=== PATIENT | male | born 1975 | race Caucasian/White ===

== ENCOUNTER 2019-11-22 19:06 | Observation (INO) | payer BC, OTHER ==
[~2019-11-22] VITALS: Ht 177.8 cm; Wt 83.7 kg
[2019-11-22] MEDS ORDERED: PANTOPRAZOLE 40 MG (PROTONIX) VIAL IV ONE (19:30)
[2019-11-22] MEDS ORDERED: ASPIRIN 81 MG CHEW (CHILDREN'S ASA) PO ONE (19:30)
--- NOTE | 2019-11-22 19:30 | ED Chest Pain ---
General Chief Complaint: Chest Pain Stated Complaint: CP Source: patient Exam Limitations: no limitations History of Present Illness Date Seen by Provider: Nov 22, 2019 Time Seen by Provider: 19:17 Initial Comments Patient resists ER by private conveyance from home with chief complaint chest pain on exertion throughout the day today. He is presently pain-free while at rest. He was having a few episodes of substernal right of the midline chest pain on the car ride over here but none since arriving in the ER. He says this started about 9:30 this morning as he was doing some cleaning around the garage. For the past week she's been having some numbness and tingling in his left arm alternating with his right arm and he did not think much of it. When he started having chest pain and noticed it would go away with rest and worsened with exertion he became concerned and decided to come to the ER. No personal history of coronary disease but his brother had a heart attack in his 40s and his mother and father both had heart attacks in their early 60s. He denies a history of diabetes or hypertension but does have borderline cholesterol and takes medication for this. He has never smoked in his life. He denies cough shortness of breath fever or chills. He has no orthopnea. He has a history of GERD but did not take anything an antacid today. He did take 325 mg of aspirin this morning when the pain started up. He follows with a nurse practitioner at [facility] preventative medicine but does not have a local primary nor does she follow with a taping supervisor. No history of himself or family with blood clots. No swollen legs, long distance travel or periods of immobility. No recent surgery. Allergies and Home Medications Allergies Coded Allergies: Penicillins (Verified Allergy, Unknown, 11/22/19) Home Medications No Active Prescriptions or Reported Meds Patient Home Medication List Home Medication List Reviewed: Yes Review of Systems Review of Systems Constitutional: No chills, No fever, No malaise EENTM: No Blurred Vision, No Double Vision Respiratory: Denies Cough, Denies Shortness of Air Cardiovascular: See HPI, Chest Pain; Denies Edema, Denies Irregular Heart Rate, Denies Lightheadedness Gastrointestinal: Denies Constipated, Denies Diarrhea, Denies Nausea Genitourinary: Denies Burning, Denies Discharge Musculoskeletal: No back pain, No joint pain Skin: No pruritus, No rash Psychiatric/Neurological: Denies Headache, Denies Numbness All Other Systems Reviewed Negative Unless Noted: Yes Past Iikhjuy-Eojdwa-Mwkmrd Hx Patient Social History Alcohol Use: Regular Use (3 days a week) Alcohol Beverage of Choice: Beer (3 days a week) Recreational Drug Use: No Smoking Status: Never a Smoker Recent Foreign Travel: No Contact w/Someone Who Travel: No Physical Exam Vital Signs Vital Signs - First Documented Capillary Refill : Less Than 3 Seconds Height, Weight, BMI Height: '" Weight: lbs. oz. kg; BMI Method: General Appearance: No Apparent Distress, WD/WN HEENT: PERRL/EOMI, Pharynx Normal, Moist Mucous Membranes Neck: Full Range of Motion, Normal Inspection Respiratory: Chest Non Tender, Lungs Clear, Normal Breath Sounds, No Accessory Muscle Use, No Respiratory Distress Cardiovascular: Regular Rate, Rhythm, No Edema, Normal Peripheral Pulses Gastrointestinal: Normal Bowel Sounds, No Organomegaly, Non Tender, Soft Neurologic/Psychiatric: Alert, Oriented x3, No Motor/Sensory Deficits Skin: Normal Color, Warm/Dry Progress/Results/Core Measures Results/Orders Lab Results Laboratory Tests Test 11/22/19 19:20 Range/Units White Blood Count 6.7 4.3-11.0 10^3/uL Red Blood Count 4.84 4.35-5.85 10^6/uL Hemoglobin 14.7 13.3-17.7 G/DL Hematocrit 43 40-54 % Mean Corpuscular Volume 90 80-99 FL Mean Corpuscular Hemoglobin 30 25-34 PG Mean Corpuscular Hemoglobin Concent 34 32-36 G/DL Red Cell Distribution Width 13.2 10.0-14.5 % Platelet Count 186 130-400 10^3/uL Mean Platelet Volume 11.8 H 7.4-10.4 FL Neutrophils (%) (Auto) 50 42-75 % Lymphocytes (%) (Auto) 34 12-44 % Monocytes (%) (Auto) 8 0-12 % Eosinophils (%) (Auto) 8 0-10 % Basophils (%) (Auto) 1 0-10 % Neutrophils # (Auto) 3.4 1.8-7.8 X 10^3 Lymphocytes # (Auto) 2.3 1.0-4.0 X 10^3 Monocytes # (Auto) 0.5 0.0-1.0 X 10^3 Eosinophils # (Auto) 0.5 H 0.0-0.3 10^3/uL Basophils # (Auto) 0.1 0.0-0.1 10^3/uL Prothrombin Time 13.0 12.2-14.7 SEC INR Comment 1.0 0.8-1.4 Activated Partial Thromboplast Time 26 24-35 SEC Sodium Level 141 135-145 MMOL/L Potassium Level 3.8 3.6-5.0 MMOL/L Chloride Level 104 98-107 MMOL/L Carbon Dioxide Level 27 21-32 MMOL/L Anion Gap 10 5-14 MMOL/L Blood Urea Nitrogen 11 7-18 MG/DL Creatinine 0.99 0.60-1.30 MG/DL Estimat Glomerular Filtration Rate > 60 BUN/Creatinine Ratio 11 Glucose Level 93 70-105 MG/DL Calcium Level 9.9 8.5-10.1 MG/DL Corrected Calcium 8.5-10.1 MG/DL Magnesium Level 2.0 1.6-2.4 MG/DL Total Bilirubin 0.5 0.1-1.0 MG/DL Aspartate Amino Transf (AST/SGOT) 19 5-34 U/L Alanine Aminotransferase (ALT/SGPT) 17 0-55 U/L Alkaline Phosphatase 59 40-136 U/L Myoglobin 44.6 10.0-92.0 NG/ML Troponin I < 0.028 <0.028 NG/ML Total Protein 8.1 6.4-8.2 GM/DL Albumin 4.9 H 3.2-4.5 GM/DL Lipase 27 8-78 U/L My Orders Orders - JOVANNY ROJAS Ekg Tracing (11/22/19 19:12) Continuous Ekg Monitoring (11/22/19 19:12) Cbc With Automated Diff (11/22/19 19:24) Magnesium (11/22/19 19:24) Chest 1 View, Ap/Pa Only (11/22/19 19:24) Comprehensive Metabolic Panel (11/22/19 19:24) Myoglobin Serum (11/22/19 19:24) Protime With Inr (11/22/19 19:24) Partial Thromboplastin Time (11/22/19 19:24) O2 (11/22/19 19:24) Lipid Panel (11/23/19 06:00) Ed Iv/Invasive Line Start (11/22/19 19:24) Lipase (11/22/19 19:24) Aspirin Chewable Tablet (Baby Aspirin Ch (11/22/19 19:30) Pantoprazole Injection (Protonix Injecti (11/22/19 19:30) Troponin I (11/22/19 19:20) Medications Given in ED Current Medications Medications Dose Ordered Sig/Angela Route Start Time Stop Time Status Last Admin Dose Admin Aspirin 162 mg ONCE ONCE PO 11/22/19 19:30 11/22/19 19:31 DC 11/22/19 19:30 162 MG Pantoprazole 40 mg ONCE ONCE IV 11/22/19 19:30 11/22/19 19:31 DC 11/22/19 19:30 40 MG Vital Signs/I&O 11/22/19 11/22/19 19:10 19:10 Temp 36.7 Pulse 74 Resp 16 B/P (MAP) 141/97 (112) Pulse Ox 96 O2 Delivery Room Air Room Air Progress Progress Note : Time: 19:29 Progress Note Patient's no acute distress at this time. We'll get troponin and labs. Chest x- ray. Initial EKG unrevealing of any ischemia. According to the heart score pathway he has high suspicious symptoms and 4 points; High risk - 12-65% 30-day MACE. Abdomen to help Admit to hospital or observation. Further testing indicated. Well's Score for PE: 0.0 points; Low risk group: 1.3% chance of PE in an ED population. PERC 0 criteria. No need for further workup, as <2% chance of PE. If no criteria are positive and clinicians pre-test probability is <15%, PERC Rule criteria are satisfied. Initial ECG Impression Date: Nov 22, 2019 Initial ECG Impression Time: 19:11 Initial ECG Rate: 64 Initial ECG Rhythm: Normal Sinus Initial ECG Intervals: Normal Initial ECG Impression: Normal Initial ECG Comparisson: No Previous ECG Available Comment Normal sinus rhythm without clinically relevant ST T wave changes. Diagnostic Imaging Diagonstic Imaging: Xray Plain Films/CT/US/NM/MRI: chest (1v) Comments No acute cardiopulmonary processes on one view chest x-ray. NAME: [facility] REC#: [id number] PT STATUS: REG ER : 1975 PHYSICIAN: JOVANNY ROJAS MD ADMIT DATE: 11/22/19/ER Draft Date of Exam:11/22/19 CHEST 1 VIEW, AP/PA ONLY INDICATION: Chest pain Upright chest shows normal heart size and vascularity. The lungs are clear. There is no effusion or pneumothorax. There is no bony abnormality. IMPRESSION: Normal chest. Dictated on workstation # [id number] Dict: 11/22/191949 Trans: 11/22/191951 [facility] [id number] Interpreted by: TOI MELENDEZ MD Electronically signed by: Reviewed: Reviewed by Me Departure Communication (Admissions) Time/Spoke to Admitting Phy: 20:06 Discussed the case with Dr. Fernandez, medicine team agrees to accept the patient to the medical floor. Time/Spoke to Consulting Phy: 20:[address] Marti, cardiology and he like a single dose of milligram per kilogram of Lovenox and aspirin tonight. Plan stress test in the morning possible catheter. Nothing by mouth after midnight. Impression Primary Impression: Chest pain Qualified Codes: R07.9 - Chest pain, unspecified Disposition: ADMITTED INPATIENT Condition: Stable Admissions Decision to Admit Reason: Admit from ER (General) Decision to Admit/Date: Nov 22, 2019 Time/Decision to Admit Time: 20:00 Departure-Patient Inst. Referrals: NO,LOCAL PHYSICIAN (PCP/Family) Primary Care Physician Scripts No Active Prescriptions or Reported Meds JOVANNY ROJAS Nov 22, 2019 19:30
[2019-11-22 19:35] LABS: BASOPHILS # (AUTO) 0.1 10^3/uL (0.0-0.1); BASOPHILS % (AUTO) 1 % (0-10); EOSINOPHILS # (AUTO) 0.5 10^3/uL (0.0-0.3); EOSINOPHILS % (AUTO) 8 % (0-10); HEMATOCRIT 43 % (40-54); HEMOGLOBIN 14.7 G/DL (13.3-17.7); LYMPHOCYTES # (AUTO) 2.3 X 10^3 (1.0-4.0); LYMPHOCYTES % (AUTO) 34 % (12-44); MEAN CORPUSCULAR HEMOGLOBIN 30 PG (25-34); MEAN CORPUSCULAR HGB CONC 34 G/DL (32-36); MEAN CORPUSCULAR VOLUME 90 FL (80-99); MEAN PLATELET VOLUME 11.8 FL (7.4-10.4); MONOCYTES # (AUTO) 0.5 X 10^3 (0.0-1.0); MONOCYTES % (AUTO) 8 % (0-12); NEUTROPHILS # (AUTO) 3.4 X 10^3 (1.8-7.8); NEUTROPHILS % (AUTO) 50 % (42-75); PLATELET COUNT 186 10^3/uL (130-400); RED CELL DISTRIBUTION WIDTH 13.2 % (10.0-14.5); WHITE BLOOD COUNT 6.7 10^3/uL (4.3-11.0)
[2019-11-22 19:40] LABS: ALBUMIN 4.9 GM/DL (3.2-4.5); CHLORIDE 104 MMOL/L (98-107); POTASSIUM 3.8 MMOL/L (3.6-5.0); SODIUM 141 MMOL/L (135-145)
[2019-11-22 19:41] LABS: CALCIUM 9.9 MG/DL (8.5-10.1)
[2019-11-22 19:42] LABS: GLUCOSE 93 MG/DL (70-105); TOTAL PROTEIN 8.1 GM/DL (6.4-8.2)
[2019-11-22 19:43] LABS: CARBON DIOXIDE 27 MMOL/L (21-32)
[2019-11-22 19:44] LABS: BILIRUBIN,TOTAL 0.5 MG/DL (0.1-1.0)
[2019-11-22 19:46] LABS: ALKALINE PHOSPHATASE 59 U/L (40-136); CREATININE SERUM 0.99 MG/DL (0.60-1.30); GFR ESTIMATED > 60
[2019-11-22 19:47] LABS: BUN/CREATININE RATIO 11
[2019-11-22 19:49] LABS: ALANINE AMINOTRANSFERASE 17 U/L (0-55)
[2019-11-22 19:50] LABS: LIPASE 27 U/L (8-78)
--- NOTE | 2019-11-22 19:53 | Diagnostic Imaging Report ---
INDICATION: Chest pain Upright chest shows normal heart size and vascularity. The lungs are clear. There is no effusion or pneumothorax. There is no bony abnormality. IMPRESSION: Normal chest. Dictated by: Dictated on workstation # [id number]
[2019-11-22] MEDS ORDERED: ENOXAPARIN 80 MG/0.8 ML (LOVENOX) SYR SC ONE (20:15)
[2019-11-22 21:20] VITALS: BP 119/80
[2019-11-22 21:22] VITALS: BP 119/80
[2019-11-22] MEDS ORDERED: NITROGLYCERIN 0.4 MG SL TABS BTL 25'S SL PRN (21:30)
[2019-11-22] MEDS ORDERED: morphine INJ 4 MG/ML 1 ML (VIAL/SYRINGE) IV PRN (21:30)
[2019-11-22] MEDS ORDERED: ONDANSETRON 4 MG/2 ML (SDV) Z0FRAN IV PRN (21:30)
[2019-11-22] MEDS ORDERED: ACETAMINOPHEN 500 MG TAB (TYLENOL) PO PRN (21:30)
[2019-11-22 21:50] VITALS: BP 111/77
[2019-11-22 22:05] VITALS: BP 105/68
[2019-11-22 22:20] VITALS: BP 113/73
--- NOTE | 2019-11-22 22:20 | NUR ---
Vamsi Crouch admitted to room 422-1, with an admitting diagnosis of chest pain, on 11/22/19 from [facility] ED via wheelchair, accompanied by hospital staff. Vamsi Lukas [place] was introduced to surroundings, call light, bed controls, phone, TV, temperature control, lights, meal times, smoking policy, visitor policy, side rail policy, bathrooms and showers. Patient Rights given to patient in the handbook. Vamsi Crouch verbalizes understanding that [facility] is not responsible for the loss or damage to any personal effects or valuables that are kept in the patients possession during their hospitalization. Vamsi Crouch verbalizes understanding of Interdisciplinary Patient Education. Patient was informed about the Rapid Response Team and its purpose.
[2019-11-22 23:20] VITALS: BP 135/78
[2019-11-23] VITALS (11 sets, daily range): BP systolic 101–111; BP diastolic 58–79
[2019-11-23] MEDS ORDERED: RED600CA2 PO (02:56)
[2019-11-23] MEDS ORDERED: COPP2CAP PO (02:56)
[2019-11-23] MEDS ORDERED: ASHWAGANDHA PO (02:56)
[2019-11-23] MEDS ORDERED: ADRENAL CORTEX PO (02:56)
[2019-11-23] MEDS ORDERED: MAGN400C PO (02:56)
[2019-11-23] MEDS ORDERED: OMG1KC PO (02:56)
[2019-11-23] MEDS ORDERED: S-AD400T3 PO (02:56)
[2019-11-23] MEDS ORDERED: UBIQ100C3 PO (02:56)
[2019-11-23] MEDS ORDERED: ACET500C8 PO (02:56)
[2019-11-23 05:51] LABS: BASOPHILS % (AUTO) 1 % (0-10); EOSINOPHILS # (AUTO) 0.4 10^3/uL (0.0-0.3); EOSINOPHILS % (AUTO) 7 % (0-10); HEMATOCRIT 42 % (40-54); HEMOGLOBIN 13.9 G/DL (13.3-17.7); LYMPHOCYTES # (AUTO) 1.8 X 10^3 (1.0-4.0); LYMPHOCYTES % (AUTO) 34 % (12-44); MEAN CORPUSCULAR HEMOGLOBIN 30 PG (25-34); MEAN CORPUSCULAR HGB CONC 33 G/DL (32-36); MEAN CORPUSCULAR VOLUME 91 FL (80-99); MEAN PLATELET VOLUME 12.1 FL (7.4-10.4); MONOCYTES # (AUTO) 0.4 X 10^3 (0.0-1.0); MONOCYTES % (AUTO) 7 % (0-12); NEUTROPHILS # (AUTO) 2.6 X 10^3 (1.8-7.8); NEUTROPHILS % (AUTO) 51 % (42-75); PLATELET COUNT 167 10^3/uL (130-400); RED CELL DISTRIBUTION WIDTH 13.3 % (10.0-14.5); WHITE BLOOD COUNT 5.2 10^3/uL (4.3-11.0)
[2019-11-23 06:15] LABS: ALANINE AMINOTRANSFERASE 17 U/L (0-55); ALBUMIN 4.2 GM/DL (3.2-4.5); ALKALINE PHOSPHATASE 57 U/L (40-136); BILIRUBIN,TOTAL 0.3 MG/DL (0.1-1.0); BUN/CREATININE RATIO 15; CALCIUM 9.5 MG/DL (8.5-10.1); CARBON DIOXIDE 25 MMOL/L (21-32); CHLORIDE 108 MMOL/L (98-107); CHOLESTEROL 182 MG/DL (< 200); CREATININE SERUM 1.01 MG/DL (0.60-1.30); GFR ESTIMATED > 60; GLUCOSE 111 MG/DL (70-105); HDL CHOLESTEROL 30 MG/DL (40-60); POTASSIUM 3.8 MMOL/L (3.6-5.0); SODIUM 141 MMOL/L (135-145); TOTAL PROTEIN 6.7 GM/DL (6.4-8.2); TRIGLYCERIDES 276 MG/DL (<150); VLDL CHOLESTEROL 55 MG/DL (5-40)
[2019-11-23] MEDS ORDERED: NS IV 1000 ML 1,000 ML IV ONE (08:45)
[2019-11-23] MEDS ORDERED: ASPIRIN E.C. 81 MG (ECOTRIN) TAB PO SCH (09:00)
[2019-11-23] MEDS ORDERED: LIDOCAINE 1% INJ 20 ML 20 ML VIAL ONE (09:04)
[2019-11-23] MEDS ORDERED: MIDAZOLAM 5 MG/5 ML (VERSED) VIAL ONE (09:04)
[2019-11-23] MEDS ORDERED: NITRO DRIP 25000 MCG/D5W 250 ML IV ONE (09:05)
[2019-11-23] MEDS ORDERED: NS IV 1000 ML 0 ML ONE (09:05)
[2019-11-23] MEDS ORDERED: VERAPAMIL 5 MG/2 ML (CALAN) VIAL IV ONE (09:05)
[2019-11-23] MEDS ORDERED: HEParin (CATH LAB) 2,000 ML IV ONE (09:05)
[2019-11-23] MEDS ORDERED: fentaNYL INJECTION 100 MCG/2 ML AMP ONE (09:05)
[2019-11-23] MEDS ORDERED: HEParin 1000 UNIT/ML (10ML VIAL) FOR BOLUS ONE (09:05)
--- NOTE | 2019-11-23 09:16 | Consultation-Cardiology ---
HPI-Cardiology Cardiology Consultation Date of Consultation 11/23/19 Date of Admission Time Seen by Provider: 09:13 Indication: Chest pain HPI 44 years old gentleman with history of hyperlipidemia, strong family history of heart disease, started to have some chest pain and right sided exertional yesterday, progress. Has been having some left arm pain on and off with exertion. Came into the emergency room and was admitted. Feeling better today. Denied any palpitation, syncope or near syncopal episodes. Fairly concerned about his strong family history with multiple family members with heart disease at a young age. Home Medications & Allergies Allergies: Coded Allergies: Penicillins (Verified Allergy, Unknown, 11/22/19) Home Medication List Reviewed: Yes NSW-Cmtoqr-Djmmsa Hx Patient Social History Marital Status: Employed/Student: employed Alcohol Use: Regular Use (3 days a week) Recreational Drug Use: No Smoking Status: Never a Smoker 2nd Hand Smoke Exposure: No Recent Foreign Travel: No Recent Infectious Disease Expo: No Recent Hopitalizations: No Immunizations Up To Date Tetanus Booster (TDap): Unknown Past Medical History Noncontributory no known past medical history Family Medical History Family Medical Hx Strong family history of heart disease with brother in his 40s has a stent father had bypass surgery and mother had heart attack Family History: Myocardial infarction 19 FATHER 19 MOTHER G8 BROTHER Review of Systems-General Review of Systems Constitutional: see HPI; No chills, No fever, No malaise EENTM: see HPI, no symptoms reported Respiratory: see HPI; No cough, No dyspnea on exertion, No hemoptysis, No orthopnea, No phlegm, No short of breath, No stridor, No wheezing, No other Cardiovascular: see HPI, chest pain; No edema, No Hx of Intervention, No palpitations, No syncope, No vascular heart diseas, No other Gastrointestinal: no symptoms reported, see HPI Genitourinary: no symptoms reported, see HPI Musculoskeletal: see HPI; No back pain, No joint pain Skin: see HPI; No pruritus, No rash Psychiatric/Neurological: See HPI; Denies Headache, Denies Numbness All Other Systems Reviewed Negative Unless Noted: Yes Reviewed Test Results Reviewed Test Results Lab Laboratory Tests Test 11/22/19 19:20 11/23/19 00:58 11/23/19 05:10 Range/Units White Blood Count 6.7 5.2 4.3-11.0 10^3/uL Red Blood Count 4.84 4.59 4.35-5.85 10^6/uL Hemoglobin 14.7 13.9 13.3-17.7 G/DL Hematocrit 43 42 40-54 % Mean Corpuscular Volume 90 91 80-99 FL Mean Corpuscular Hemoglobin 30 30 25-34 PG Mean Corpuscular Hemoglobin Concent 34 33 32-36 G/DL Red Cell Distribution Width 13.2 13.3 10.0-14.5 % Platelet Count 186 167 130-400 10^3/uL Mean Platelet Volume 11.8 H 12.1 H 7.4-10.4 FL Neutrophils (%) (Auto) 50 51 42-75 % Lymphocytes (%) (Auto) 34 34 12-44 % Monocytes (%) (Auto) 8 7 0-12 % Eosinophils (%) (Auto) 8 7 0-10 % Basophils (%) (Auto) 1 1 0-10 % Neutrophils # (Auto) 3.4 2.6 1.8-7.8 X 10^3 Lymphocytes # (Auto) 2.3 1.8 1.0-4.0 X 10^3 Monocytes # (Auto) 0.5 0.4 0.0-1.0 X 10^3 Eosinophils # (Auto) 0.5 H 0.4 H 0.0-0.3 10^3/uL Basophils # (Auto) 0.1 0.0 0.0-0.1 10^3/uL Prothrombin Time 13.0 12.2-14.7 SEC INR Comment 1.0 0.8-1.4 Activated Partial Thromboplast Time 26 24-35 SEC Sodium Level 141 141 135-145 MMOL/L Potassium Level 3.8 3.8 3.6-5.0 MMOL/L Chloride Level 104 108 H 98-107 MMOL/L Carbon Dioxide Level 27 25 21-32 MMOL/L Anion Gap 10 8 5-14 MMOL/L Blood Urea Nitrogen 11 15 7-18 MG/DL Creatinine 0.99 1.01 0.60-1.30 MG/DL Estimat Glomerular Filtration Rate > 60 > 60 BUN/Creatinine Ratio 11 15 Glucose Level 93 111 H 70-105 MG/DL Calcium Level 9.9 9.5 8.5-10.1 MG/DL Corrected Calcium 9.3 8.5-10.1 MG/DL Magnesium Level 2.0 1.6-2.4 MG/DL Total Bilirubin 0.5 0.3 0.1-1.0 MG/DL Aspartate Amino Transf (AST/SGOT) 19 17 5-34 U/L Alanine Aminotransferase (ALT/SGPT) 17 17 0-55 U/L Alkaline Phosphatase 59 57 40-136 U/L Myoglobin 44.6 10.0-92.0 NG/ML Troponin I < 0.028 < 0.028 < 0.028 <0.028 NG/ML Total Protein 8.1 6.7 6.4-8.2 GM/DL Albumin 4.9 H 4.2 3.2-4.5 GM/DL Lipase 27 8-78 U/L Triglycerides Level 276 H <150 MG/DL Cholesterol Level 182 < 200 MG/DL LDL Cholesterol Direct 141 H 1-129 MG/DL VLDL Cholesterol 55 H 5-40 MG/DL HDL Cholesterol 30 L 40-60 MG/DL Physical Exam Physical Exam Vital Signs Vital Signs - First Documented Capillary Refill : Less Than 3 Seconds Height, Weight, BMI Height: '" Weight: lbs. oz. kg; 26.47 BMI Method: General Appearance: No Apparent Distress, WD/WN HEENT: PERRL/EOMI, Pharynx Normal, Moist Mucous Membranes Neck: Full Range of Motion, Normal Inspection Respiratory: Chest Non Tender, Lungs Clear, Normal Breath Sounds, No Accessory Muscle Use, No Respiratory Distress Cardiovascular: Regular Rate, Rhythm, No Edema, Normal Peripheral Pulses Gastrointestinal: Normal Bowel Sounds, No Organomegaly, Non Tender, Soft Neurologic/Psychiatric: Alert, Oriented x3, No Motor/Sensory Deficits Skin: Normal Color, Warm/Dry A/P-Cardiology Admission Diagnosis Chest pain Hyperlipidemia Family history of atherosclerosis Assessment/Plan Chest pain nonspecific etiology, resembling angina, strong family history of heart disease, history of hyperlipidemia, pain with exertion, no acute EKG changes, cardiac enzymes are negative, discussed the management plan recommended cardiac catheterization versus stress test as an outpatient. Patient prefer to have a cardiac catheterization due to the strong family history of heart disease Hyperlipidemia, we'll start statin Strong family history of heart disease Clinical Quality Measures AMI/AHF: ASA po Prior to arrival: Yes (325) DVT/VTE Risk/Contraindication: Risk Factor Score Per Nursin RFS Level Per Nursing on Admit: 1=Low/No VTE PPX RAPHAEL MOTA MD Nov 23, 2019 09:16
--- NOTE | 2019-11-23 09:17 | Cardiac Procedure Note-CS/ASA ---
Pre-Procedure Note Pre-Op Procedure Note H&P Reviewed The H&P was reviewed, patient examined and no changes noted. Date H&P Reviewed: Nov 23, 2019 Time H&P Reviewed: 09:16 Conscious Sedation Pre-Proced Time 09:17 ASA Score 3 For ASA 3 and 4: Consider anesthesia and medical clearance. Also, for patients with a history of failed moderate sedation consider anesthesia. Airway Lungs Heart ASA score ASA 1: a normal healthy patient ASA 2: a patient with a mild systemic disease (mid diabetes, controlled hypertension, obesity x ASA 3: a patient with a severe systemic disease that limits activity (angina, COPD, prior Myocardial infarction) ASA 4: a patient with an incapacitating disease that is a constant threat to life (CHF, renal failure) ASA 5: a moribund patient not expected to survive 24 hrs. (ruptured aneurysm) ASA 6: a declared brain- patient whose organs are being harvested. For emergent operations, add the letter E after the classification Mallampati Classification Grade 3 Sedation Plan Analgesia, Amnesia, Plan communicated to team members, Discussed options with patient/fam, Discussed risks with patient/fam The patient is an appropriate candidate to undergo the planned procedure, sedation, and anesthesia. The patient immediately re-assessed prior to indication. RAPHAEL MOTA MD Nov 23, 2019 09:17
[2019-11-23] MEDS ORDERED: NS IV 1000 ML 1,000 ML IV SCH (09:59)
[2019-11-23] MEDS ORDERED: ATOR10TA PO (10:01)
--- NOTE | 2019-11-23 10:01 | Discharge Inst-Post CATH ---
Discharge Inst-CATH/EP Problems Reviewed?: Yes Post Cardiac Cath/EP D/C Inst Follow Up/Plan Appointment with Dr. Marti's office in 2-4 weeks <b>CARDIAC CATH/EP PROCEDURE DISCHARGE INSTRUCTIONS</b> ACTIVITY * Go Home directly and rest. * Limit activity of the leg (or wrist if it was used) for 7 days including aerobics, swimming, jogging, bicycling, etc. * Restrict stair-climbing for 7 days if possible, if not, climb up with your non-cath leg, then bring together on the same step. * Avoid lifting, pushing, pulling or excessive movement of the affected extremity for 7 days. * Customary sexual activity may be resumed after 2 days-use caution not to use a position that strains or causes pain to the affected extremity. * No driving for 24 hours. * NO SMOKING. * Avoid straining for bowel movements for 7 days. * Gentle walking on level ground is allowed. * Returning to work will depend on the type of procedure and the results. Your doctor will discuss this with you. CALL YOUR DOCTOR FOR ANY OF THE FOLLOWING: *If bleeding from the puncture site occurs- Apply gentle pressure to site with clean cloth and call your doctor or EMS. * If a knot or lump forms under the skin, increases in size, or causes pain. * If bruising appears to be worsening or moving further down your leg instead of disappearing. * Temperature above 101 F. CARE OF YOUR GROIN INCISION; * Bruising or purple discoloration of the skin near the puncture site is common. * You may shower only, no bathtub bathing for 5 days. Be careful to avoid slipping as your leg may feel stiff. * If a closure device was used on your femoral artery, please see the attached guide regarding care of the device and your leg. * Leave dressing on FOR 24 hours. CARE OF YOUR WRIST INCISION; * Bruising or purple discoloration of the skin near the puncture site is common. * You may shower. * DO NOT submerge wrist. * Leave dressing on FOR 24 hours. RAPHAEL MARTI MD Nov 23, 2019 10:01
--- NOTE | 2019-11-23 10:05 | Cardiac Cath Report ---
Cardiac Cath Report Physician (s)/Dude Wrangler (s) Physician RAPHAEL MOTA MD Pre-Procedure Diagnosis Pre-Procedure Diagnosis: Chest pain Post-Procedure Note Procedure Start Date: Nov 23, 2019 Name of Procedure: Left heart catheterization Left ventriculogram Findings/Procedure Note PROCEDURE NOTE: 44 years old gentleman with history of hyperlipidemia, strong family history of heart disease, admitted with acute chest pain resembling angina. Decided to proceed with cardiac catheterization possible PTCA. After explaining the procedure to the patient, all pros and cons were explained, all questions were answered. The patient signed the consent and then he was placed on the cardiac catheterization laboratory. Groin was prepped SL fashion local anesthesia was used. Sheath placed in the right radial artery, [place] catheter used advanced to the left ventricular cavity, left ventriculogram was done, pulled back to the left main artery and the left system was evaluated, could not intubate correctly the right coronary system I exchanged over long J- wire and used JR catheter. Evaluated the right coronary system. At the end of the procedure the sheath was removed. Vascular event was used FINDINGS: Hemodynamics LV 100/5, end-diastolic pressure 5 Aorta 88/60 mean of 72 ANATOMY: Left Main is free of obstructive disease Left Anterior Descending is free of obstructive disease Left Circumflex is free of obstructive disease Right Coronory Artery is dominant artery with no obstructive disease LV Gram is normal in size with normal contractility estimated ejection fraction 60 percent CONCLUSION: 1. Normal coronary system nonobstructive disease 2. Normal left ventricular size and systolic function estimated ejection fraction 60 percent DISCUSSION AND RECOMMENDATION: Chest pain is noncardiac, patient will be starting on Lipitor due to hyperlipidemia Anesthesia Type: Conscious Sedation Estimated blood loss (mL): 5 ml Contrast Amount: 40 ml Total Radiation Dose: 244 mGy Post-Procedure Diagnosis Post-operative diagnosis: Chest pain Hyperlipidemia Family history of atherosclerosis RAPHAEL MOTA MD Nov 23, 2019 10:05
== END 2019-11-23 14:16 | disposition home or self-care (01) ==
LOC: ER 19:08 → 4TH 20:00
PROVIDERS: ADMIT Family Medicine; ATTEND Family Medicine
DX: R07.9 Chest pain, unspecified (principal); E78.5 Hyperlipidemia, unspecified; K21.9 Gastro-esophageal reflux disease without esophagitis; Z88.0 Allergy status to penicillin; Z82.49 Family history of ischemic heart disease and other diseases of the circulatory system
CPT/HCPCS: 36415; 71045; 80053; 80061; 83690; 83735; 83874; 84484; 85025; 85610; 85730; 93005; 93041; 93458; G0378